=== PATIENT | female | born 1960 | race Caucasian/White ===

== ENCOUNTER → 2019-05-31 10:55 | Outpatient (CLI) | payer BC, SELFPAY ==
--- NOTE | ~2019-05-31 | MM_ITS ---
EXAMINATION: MM screening carie BI w sheri HISTORY: Screening mammogram TECHNIQUE: Craniocaudal and mediolateral oblique 3-D tomosynthesis images were obtained and synthetic 2-D images were generated. CAD analysis was submitted and interpreted. COMPARISON: 05/28/2018, 05/20/2017, 05/07/2016 bilateral digital screening mammogram examinations BREAST PARENCHYMAL COMPOSITION: There are scattered areas of fibroglandular density. FINDINGS: Status post right partial mastectomy for breast cancer. Several benign circumscribed low-de nsity stable opacities on the right. Minimal benign calcification on the right. There is no evidence of suspicious mass, calcification, or architectural distortion to suggest malignancy in either breast . There has been no suspicious interval change. IMPRESSION: 1. No mammographic evidence of malignancy. 2. Recommend routine screening mammography in one year. BI-RADS Category 2: Benign finding(s). Reviewed, dictated and finalized at location A. X SYSTEMS ADMINISTRATOR
--- NOTE | ~2019-05-31 | DEXA_ITS ---
Bone Density Report Name: Kym Tariq Age: 59 Sex: Female Ethnicity: White Date of : 1960 Indication: osteopenia; height loss; prior fracture; postmenopausal Referring Provider: AFTAB, BONG [place] Study: Bone densitometry was performed. Exam Date: May 31, 2019 Accession number: [id number] Bone Density: Region BMD T-score Z-score Classification AP Spine (L1-L4) 0.842 -1.9 -0.5 Osteopenia Femoral Neck (Left) 0.750 -0.9 0.4 Normal Total Hip (Left) 0.852 -0.7 0.2 Normal Femoral Neck (Right) 0.758 -0.8 0.4 Normal Total Hip (Right) 0.923 -0.2 0.7 Normal Total Hip Mean 0.888 -0.5 0.5 Normal World Health Organization criteria for BMD impression classify patients as: Normal (T-score at or above -1.0), Osteopenia (T-score between -1.0 and -2.5), or Osteoporosis (T-score at or below -2.5). 10-year Fracture Risk(1): Major Osteoporotic Fracture 12% Hip Fracture 0.6% Reported Risk Factors: [place] (), Neck BMD=0.750, BMI=27.3, previous fracture (1) FRAX(R) Version 3.08. Fracture probability calculated for an untreated patient. Fracture probability may be lower if the patient has received treatment. Previous Exams: Region Exam Age BMD T-score BMD Change BMD Change Date g/cm2 vs Baseline vs Previous AP Spine(L1-L4) 05/31/2019 59 0.842 -1.9 -0.094* 0.002 05/23/2016 56 0.840 -1.9 -0.096* -0.048* 12/15/2013 53 0.888 -1.4 -0.048* -0.048* 06/08/2010 50 0.936 -1.0 Total Hip(Left) 05/31/2019 59 0.852 -0.7 -0.033* -0.009 05/23/2016 56 0.861 -0.7 -0.024 -0.002 12/15/2013 53 0.863 -0.6 -0.022 -0.022 06/08/2010 50 0.885 -0.5 Total Hip(Right) 05/31/2019 59 0.923 -0.2 -0.008 -0.002 05/23/2016 56 0.925 -0.1 -0.006 0.000 12/15/2013 53 0.925 -0.1 -0.006 -0.006 06/08/2010 50 0.931 -0.1 *Denotes significance at 95% confidence level, LSC for AP Spine = 0.022 g/cm2, LSC for Total Hip = 0.027 g/cm2 Clinical Information Provided by Patient: Has had a low trauma fracture Patient maximum height was 63 Menopause Age: 47 Drinks caffeinated beverages Onset of menses at age 13 Number of children 2 Impression: The patient has low bone mass, based on the Total Spine T-score. The patient has an estimated ten-year risk of hip frac
== END ==
PROVIDERS: Visit Provider Internal Medicine
DX: Z12.31 Encounter for screening mammogram for malignant neoplasm of breast (principal); C50.111 Malignant neoplasm of central portion of right female breast; Z17.1 Estrogen receptor negative status [ER-]; Z78.0 Asymptomatic menopausal state; M85.88 Other specified disorders of bone density and structure, other site
CPT/HCPCS: 77063; 77067; 77080

== ENCOUNTER 2020-01-04 10:17 | Emergency (ER) | payer BC, SELFPAY ==
--- NOTE | ~2020-01-04 | XR_ITS ---
EXAMINATION: XR wrist RT min 3V DATE: 01/04/2020 10:51 INDICATION: Ulnar-sided wrist pain TECHNIQUE: Posteroanterior, ulnar deviation, oblique, and lateral views of the right wrist were obtai juan. COMPARISON: none FINDINGS: Alignment is normal. No fracture. Ulnar variance appears neutral however there is prominent cystic ch aaron at the ulnar side of the proximal lunate suggestive of ulnocarpal impaction. Joint spaces are no rmal. Soft tissues are unremarkable. IMPRESSION: 1. Prominent cystic change at the ulnar side of the proximal lunate suggestive of ulnocarpal impactio n although ulnar variance is neutral. Differential would include intraosseous ganglion cyst or less l ikely osteonecrosis. Reviewed, dictated and finalized at location A. IMPRESSION: 1. Prominent cystic change at the ulnar side of the proximal lunate suggestive of ulnocarpal impaction although ulnar variance is neutral. Differential would include intraosseous ganglion cyst or less likely osteonecrosis.
[2020-01-04 10:31] VITALS: BP 140/79; PULSE 75; RESP 18; TEMP 36.4; O2SAT 99
--- NOTE | 2020-01-04 10:42 | ED.UPPEXIN ---
HPI - Extremity Injury (Upper) General Chief Complaint: Extremity Injury, Upper Stated Complaint: right wrist pain Source: patient and RN notes reviewed Mode of arrival: ambulatory Limitations: no limitations History of Present Illness HPI narrative: This is a 59-year-old white female that presented to the urgent care today with complaints of right wrist pain that she has had for the last 10 days. According to patient she was lifting her bike and could have possibly injured her right wrist. She denies any swelling and notes that with movement and pressure she experienced pain. Patient has not did anything at home to relieve her symptoms. Patient does have full range of motion with that right wrist and pulses are palpable. She notes that the only time she really feels pain is when she puts pressure on the wrist. She also noted that the pain has woke her out of her sleep at night. the patient denies SOB, CP, palpitation, extremity numbness, lightheadedness, dizziness, constipation, diarrhea, chills, or fever. We will order a x-ray of her wrist Related Data Home Medications Medication Instructions Recorded Confirmed atorvastatin 20 mg PO DAILY 01/04/20 01/04/20 Allergies Allergy/AdvReac Type Severity Reaction Status Date / Time No Known Allergies Allergy Verified 01/04/20 10:21 Review of Systems Review of Systems: Narrative: CONSTITUTIONAL: Denies fever, chills, sweats. EYES: Denies visual changes, redness, discharge. ENT: Denies rhinorrhea, congestion, sore throat, otalgia. CARDIOVASCULAR: Denies chest pain, palpitations, edema. RESPIRATORY: Denies dyspnea, wheezing, cough GASTROINTESTINAL: Denies abdominal pain, nausea, vomiting, diarrhea. GENITOURINARY: Denies dysuria, hematuria, abnormal discharge SKIN: Denies rash or itching. MUSCULOSKELETAL: right wrist pain when pressure is applied and with positioning NEUROLOGIC: DenIes numbness, or focal weakness. PSYCHIATRIC: Denies anxiety or depression. PMFSH Social History Social History Gender identity (if verbalized by the patient): Female Exam Narrative: Exam Narrative: GENERAL: This is a well-nourished, well-developed patient, in no apparent distress. HEAD: normocephalic, atraumatic. EYES: PERRL. Sclera clear/white. Vision is grossly intact. EARS: External ears normal, auditory canals clear and without drainage, TMs normal without perforation. Hearing grossly intact. NOSE: External nose normal with no obvious nasal discharge, nares without redness, no rhinorrhea. THROAT: Mucous membranes moist, posterior pharynx clear. NECK: Neck supple, non-tender without lymphadenopathy, masses or thyromegaly. CARDIOVASCULAR: Regular rate and rhythm without murmurs, gallops, or rubs. RESPIRATORY: Clear to auscultation. Breath sounds equal bilaterally. No wheezes, rales, or rhonchi. GASTROINTESTINAL: Abdomen soft, non-tender, nondistended. Bowel sounds are active. No hepato-splenomegaly, or palpable masses. No guarding. SKIN: warm, intact with no suspicious lesions or rash, good texture and turgor. NEURO: awake, alert, and oriented to person, place and time. There were no obvious focal neurologic abnormalities. Steady gait EXTREMITIES: Limited range of motion to the right wrist due to pain. No edema noted. tenederness with palpation, dhara strength, not neurovascular compromise BACK: Nontender without deformity or crepitance. No flank tenderness. Course Vital Signs Vital signs: Vital Signs Temperature 97.6 F 01/04/20 10:31 Pulse Rate 75 01/04/20 10:31 Respiratory Rate 18 01/04/20 10:31 Blood Pressure 140/79 01/04/20 10:31 Pulse Oximetry 99 01/04/20 10:31 Temperature 97.6 F 01/04/20 10:31 Pulse Rate 75 01/04/20 10:31 Respiratory Rate 18 01/04/20 10:31 Blood Pressure 140/79 01/04/20 10:31 Pulse Oximetry 99 01/04/20 10:31 Procedures Other Procedure Procedure 1: Other P
== END 2020-01-04 11:24 | disposition home or self-care (01) ==
PROVIDERS: Emergency Provider Nurse Practitioner; PCP Family Medicine
DX: M67.431 Ganglion, right wrist (principal); S63.501A Unspecified sprain of right wrist, initial encounter; S66.911A Strain of unspecified muscle, fascia and tendon at wrist and hand level, right hand, initial encounter; X58.XXXA Exposure to other specified factors, initial encounter; M25.831 Other specified joint disorders, right wrist; E78.00 Pure hypercholesterolemia, unspecified
CPT/HCPCS: 73110; 99213; G0463

== ENCOUNTER 2020-02-09 08:51 | Outpatient (NON) | payer BC, SELFPAY ==
[2020-02-09 19:05] LABS: SARS-CoV-2 RNA PCR Negative
== END 2020-02-09 08:52 ==
PROVIDERS: PCP Family Medicine; Visit Provider Family Medicine
DX: J02.9 Acute pharyngitis, unspecified (principal); R51.9 Headache, unspecified
CPT/HCPCS: 87635; C9803; U0003

== ENCOUNTER 2020-06-08 16:44 | Outpatient (CLI) | payer BC, SELFPAY ==
--- NOTE | ~2020-06-08 | MM_ITS ---
EXAMINATION: MM screening carie BI w sheri HISTORY: Screening TECHNIQUE: Craniocaudal and mediolateral oblique 3-D tomosynthesis images were obtained and synthetic 2-D images were generated. CAD analysis was submitted and interpreted. COMPARISON: Comparison to multiple prior studies sequentially, with oldest reviewed study dated 03/22. BREAST PARENCHYMAL COMPOSITION: There are scattered areas of fibroglandular density. FINDINGS: Stable architectural distortion of the right breast, consistent with previous lumpectomy. T here is no evidence of suspicious mass, calcification, or architectural distortion to suggest maligna ncy in either breast. There has been no suspicious interval change. IMPRESSION: 1. No mammographic evidence of malignancy. 2. Recommend routine screening mammography in one year. BI-RADS Category 2: Benign finding(s). Reviewed, dictated and finalized at location A. ER
== END 2020-06-08 16:45 | disposition home or self-care (01) ==
PROVIDERS: PCP Family Medicine; Visit Provider Obstetrics & Gynecology Gynecology
DX: Z12.31 Encounter for screening mammogram for malignant neoplasm of breast (principal)
CPT/HCPCS: 77063; 77067

== ENCOUNTER → 2020-11-24 13:55 | Outpatient (CLI) | payer BC, SELFPAY ==
--- NOTE | ~2020-11-24 | XR_ITS ---
EXAMINATION: XR hip RT min 2V DATE: 11/24/2020 14:04 INDICATION: Right hip pain. TECHNIQUE: 2 views of right hip were obtained. COMPARISON: Right hip radiographs 03/30/2007 FINDINGS: Bone alignment is normal. No fracture. There is mild right hip osteoarthritis. IMPRESSION: 1. Mild right hip osteoarthritis. Reviewed, dictated and finalized at location A.
== END ==
PROVIDERS: PCP Family Medicine; Visit Provider Physician Assistant
DX: M25.551 Pain in right hip (principal)
CPT/HCPCS: 73502

== ENCOUNTER 2021-01-16 01:34 | Day surgery (SDC) | payer BC, SELFPAY ==
[2021-01-04 13:01] VITALS: BMI 24.7
[2021-01-16 09:25] VITALS: BP 99/62; PULSE 63; RESP 16; TEMP 36.2; O2SAT 100; BMI 23.7
[2021-01-16] MEDS: LACTATED RINGERS 1,000 ML 150 ML IV CONT (09:32)
--- NOTE | 2021-01-16 09:38 | P.CONGI_ITS ---
Assessment and Plan Assessment and plan (1) Encounter for screening colonoscopy: Code(s): Z12.11 - Encounter for screening for malignant neoplasm of colon Status: Acute Assessment and Plan: Patient presents for screening colonoscopy. Appears to be at average risk for colon polyps. GI Consult Note Consult date/time: 01/16/21 09:38 HPI: Elysia Tariq is a 60 year old female Presents for neoplasia screening. Patient's current weight appetite bowel movements are normal. She denies abdominal pain. She has had no bleeding. She has had some tendency towards constipation. Her past medical history is significant for breast cancer for which she has had chemotherapy. She complains of occasional joint aches. She presents today for neoplasia screening colonoscopy. [facility] Social History Social History Smoking packs per day: 1 Smoking cigarettes per day: 20.0 Smoking status: Former smoker Tobacco type: cigarettes Substance use type: does not use Gender identity (if verbalized by the patient): Female Meds Home Medications and Allergies Home Medications Medication Instructions Recorded Confirmed Type atorvastatin 20 mg PO DAILY 01/04/20 01/16/21 History meloxicam 15 mg PO DAILY 01/04/21 01/16/21 History Allergies Allergy/AdvReac Type Severity Reaction Status Date / Time No Known Allergies Allergy Verified 01/16/21 09:24 Vital Signs Vital Signs - 24 hr 01/16/21 09:25 Temperature 97.2 F L Pulse Rate 63 Respiratory Rate 16 Blood Pressure 99/62 L Pulse Oximetry 100 Exam Narrative: Physical exam reveals patient be alert. Vital signs stable. HEENT exam is unremarkable. Patient is anicteric. Lungs are clear to auscultation and percussion. Heart is without murmur or extra sounds. Abdominal exam bowel sounds are present soft nontender with no organomegaly. Digital external rectal exam is normal.
--- NOTE | 2021-01-16 10:25 | P.PNAN_ITS ---
Anes - Initial Pre Proc Eval Procedure: Operation Date: 01/16/21 10:30 Proposed Procedures p Screening Colonoscopy - Kendall Vance MD Date/Time: 01/16/21 10:25 Surgeon: Kendall Vance MD Pre Op Diagnosis: neoplasm screening Patient Data Age: 60 Gender: F Height: 1.57 m Weight: 58.8 kg Last Vital Signs Temp 97.2 F L 01/16/21 09:25 Pulse 63 01/16/21 09:25 Resp 16 01/16/21 09:25 BP 99/62 L 01/16/21 09:25 Pulse Ox 100 01/16/21 09:25 Allergies Allergy/AdvReac Type Severity Reaction Status Date / Time No Known Allergies Allergy Verified 01/16/21 09:24 Home Medications Medication Instructions Recorded Confirmed Type atorvastatin 20 mg PO DAILY 01/04/20 01/16/21 History meloxicam 15 mg PO DAILY 01/04/21 01/16/21 History Patient hx anesthesia problems: none Family hx anesthesia problems: none Results Review: All pre-operative results and documents have been reviewed as part of the pre-operative evaluation. [facility] Past Medical History Medical History (Updated 01/16/21 @ 10:25 by Davis Macdonald MD) H/O malignant neoplasm of breast Hyperlipidemia Social History Social History Smoking packs per day: 1 Smoking cigarettes per day: 20.0 Smoking status: Former smoker Tobacco type: cigarettes Substance use type: does not use Gender identity (if verbalized by the patient): Female Anes - Eval Final PreProcedure Day of Procedure 01/16/21 10:25 Patient weight: overweight Heart: regular rate and rhythm Lungs: clear to auscultation Airway: Mallampati scale class II Neurological: alert and oriented Last oral intake: >/= 8 hours ASA classification: III Emergent: no Anesthetic plan: proceed Anesthesia type and monitoring: general GIVS and standard monitoring Results Review: All pre-operative results and documents have been reviewed as part of the pre-operative evaluation. Informed Consent: The patient's anesthetic plan and its attendant risks and benefits were discussed with the patient/family/POA. Questions were solicited and answers provided to the satisfaction of the patient/family/POA.
--- NOTE | 2021-01-16 10:57 | SUR.OPER ---
Patient has right arm limb alert due to breast cancer. Patient states its ok to use right arm for IV insertion. Successful IV placed in right AC per ARTI Gregory.
[2021-01-16 11:12] VITALS: BP 90/52; PULSE 64; RESP 18; O2SAT 99
[2021-01-16 11:22] VITALS: BP 106/71; PULSE 63; RESP 20; O2SAT 100
[2021-01-16 11:32] VITALS: BP 116/68; PULSE 58; RESP 18; O2SAT 100
== END 2021-01-16 11:38 | disposition home or self-care (01) ==
PROVIDERS: PCP Family Medicine; Visit Provider Internal Medicine Gastroenterology
PROC: 0DJD8ZZ Inspection of Lower Intestinal Tract, Via Natural or Artificial Opening Endoscopic (ICD-10-PCS; CPT 45378; principal; 2021-01-16 10:30)
DX: Z12.11 Encounter for screening for malignant neoplasm of colon (principal); K64.8 Other hemorrhoids; K57.30 Diverticulosis of large intestine without perforation or abscess without bleeding; Z87.891 Personal history of nicotine dependence
CPT/HCPCS: 45378; J2001; J2704; J7120

== ENCOUNTER → 2021-01-17 11:35 | Outpatient (CLI) | payer BC, SELFPAY ==
--- NOTE | ~2021-01-17 | XR_ITS ---
XR chest 2V DATE: 01/17/2021 12:06 INDICATION: Back pain TECHNIQUE: PA and lateral views COMPARISON: 06/22/2009 portable AP chest FINDINGS: There is bilateral hyperinflation. No pulmonary infiltrate or consolidation, pleural effusi on or pulmonary vascular congestion or pneumothorax. Normal heart size. No hilar or mediastinal enlargement. Diffuse osteopenia. IMPRESSION: Bilateral hyperinflation; no active cardiac pulmonary disease Osteopenia Reviewed, dictated and finalized at location B.
== END ==
PROVIDERS: PCP Family Medicine; Visit Provider Physician Assistant
DX: M54.9 Dorsalgia, unspecified (principal); R91.8 Other nonspecific abnormal finding of lung field; M85.88 Other specified disorders of bone density and structure, other site
CPT/HCPCS: 71046

== ENCOUNTER → 2021-01-25 15:00 | Outpatient (CLI) | payer BC, SELFPAY ==
--- NOTE | ~2021-01-25 | US_ITS ---
EXAMINATION: US right upper quadrant DATE: 01/25/2021 15:30 INDICATION: Right upper quadrant abdominal pain. Right upper back pain. TECHNIQUE: Multiple grayscale and Doppler ultrasound images of the abdomen were obtained. COMPARISON: Ultrasound 03/05/2013 FINDINGS: The visualized portions of the head, body, and tail of the pancreas are normal. The liver i s normal without focal lesion. No liver surface nodularity. There is normal flow in main portal vein. The gallbladder is normal in size. No gallstones or gallbladder wall thickening. There was no sonogr aphic Knutson sign. The common duct is normal and measures 5 mm. Right kidney is normal. IMPRESSION: 1. Normal right upper quadrant ultrasound. Reviewed, dictated and finalized at location A.
== END ==
PROVIDERS: PCP Family Medicine; Visit Provider Physician Assistant
DX: R10.11 Right upper quadrant pain (principal)
CPT/HCPCS: 76705

== ENCOUNTER 2021-07-09 09:30 | Outpatient (CLI) | payer BC, SELFPAY ==
--- NOTE | ~2021-07-09 | MM_ITS ---
EXAMINATION: MM screening carie BI w sheri HISTORY: Screening mammogram TECHNIQUE: Craniocaudal and mediolateral oblique 3-D tomosynthesis images were obtained and synthetic 2-D images were generated. CAD analysis was submitted and interpreted. COMPARISON: June 08, 2020, May 31, 2019, May 28, 2018 bilateral screening mammogram exam inations BREAST PARENCHYMAL COMPOSITION: There are scattered areas of fibroglandular density. FINDINGS: There is diminished volume of the right breast compared to the left consistent with prior p artial mastectomy for malignancy 15 years ago according to the history. There is no evidence of suspi cious mass, calcification, or architectural distortion to suggest malignancy in either breast. There has been no suspicious interval change. IMPRESSION: 1. No mammographic evidence of malignancy. 2. Recommend routine screening mammography in one year. BI-RADS Category 2: Benign finding(s). Reviewed, dictated and finalized at location A.
== END 2021-07-09 09:31 | disposition home or self-care (01) ==
LOC: ANHIMG 09:32
PROVIDERS: PCP Family Medicine; Visit Provider Obstetrics & Gynecology Gynecology
DX: Z12.31 Encounter for screening mammogram for malignant neoplasm of breast (principal)
CPT/HCPCS: 77063; 77067

== ENCOUNTER → 2022-01-03 13:49 | Outpatient (CLI) | payer BC, SELFPAY ==
--- NOTE | ~2022-01-03 | DEXA_ITS ---
Bone Density Report Name: TONYA FAULKNER Age: 61 Sex: Female Ethnicity: White Date of : 1960 Indication: osteopenia; prior fracture; postmenopausal Referring Provider: DANA NOVAK Study: Bone densitometry was performed. Exam Date: January 03, 2022 Accession number: [id number] Bone Density: Region BMD T-score Z-score Classification AP Spine (L1-L4) 0.850 -1.8 -0.2 Osteopenia Femoral Neck (Left) 0.739 -1.0 0.4 Normal Total Hip (Left) 0.829 -0.9 0.1 Normal Femoral Neck (Right) 0.744 -0.9 0.4 Normal Total Hip (Right) 0.888 -0.4 0.6 Normal Total Hip Mean 0.859 -0.7 0.4 Normal World Health Organization criteria for BMD impression classify patients as: Normal (T-score at or above -1.0), Osteopenia (T-score between -1.0 and -2.5), or Osteoporosis (T-score at or below -2.5). 10-year Fracture Risk(1): Major Osteoporotic Fracture 12% Hip Fracture 0.8% Reported Risk Factors: [place] (), Neck BMD=0.739, BMI=23.6, previous fracture (1) FRAX(R) Version 3.08. Fracture probability calculated for an untreated patient. Fracture probability may be lower if the patient has received treatment. Previous Exams: Region Exam Age BMD T-score BMD Change BMD Change Date g/cm2 vs Baseline vs Previous AP Spine(L1-L4) 01/03/2022 61 0.850 -1.8 -0.086* 0.008 05/31/2019 59 0.842 -1.9 -0.094* 0.002 05/23/2016 56 0.840 -1.9 -0.096* -0.048* 12/15/2013 53 0.888 -1.4 -0.048* -0.048* 06/08/2010 50 0.936 -1.0 Total Hip(Left) 01/03/2022 61 0.829 -0.9 -0.056* -0.023 05/31/2019 59 0.852 -0.7 -0.033* -0.009 05/23/2016 56 0.861 -0.7 -0.024 -0.002 12/15/2013 53 0.863 -0.6 -0.022 -0.022 06/08/2010 50 0.885 -0.5 Total Hip(Right) 01/03/2022 61 0.888 -0.4 -0.043* -0.035* 05/31/2019 59 0.923 -0.2 -0.008 -0.002 05/23/2016 56 0.925 -0.1 -0.006 0.000 12/15/2013 53 0.925 -0.1 -0.006 -0.006 06/08/2010 50 0.931 -0.1 *Denotes significance at 95% confidence level, LSC for AP Spine = 0.022 g/cm2, LSC for Total Hip = 0.027 g/cm2 Clinical Information Provided by Patient: Has had a low trauma fracture Has used the following medications: Calcium, MULTI-VITAMIN Patient maximum height was 62.5 Menopause Age: 47 Drinks caffeinated beverages Onset of
== END ==
PROVIDERS: PCP Family Medicine; Visit Provider Obstetrics & Gynecology Gynecology
DX: Z78.0 Asymptomatic menopausal state (principal); M85.88 Other specified disorders of bone density and structure, other site
CPT/HCPCS: 77080

== ENCOUNTER → 2022-08-21 12:17 | Outpatient (CLI) | payer BC, SELFPAY ==
--- NOTE | ~2022-08-21 | XR_ITS ---
EXAMINATION: XR hip LT min 2V DATE: 08/21/2022 13:43 INDICATION: Left hip pain. TECHNIQUE: 2 views of left hip were obtained. COMPARISON: None. FINDINGS: Bone alignment is normal. No fracture. There is mild left hip osteoarthritis characterized by tiny marginal osteophytes. No joint space narrowing. IMPRESSION: 1. Mild left hip osteoarthritis. Reviewed, dictated and finalized at location A.
--- NOTE | ~2022-08-21 | XR_ITS ---
EXAM: XR shoulder LT min 2V DATE: 08/21/2022 13:43 HISTORY: M25.512 - Pain in left shoulder . COMPARISON: None available. FINDINGS: Normal mineralization. No fracture or dislocation. No lytic or blastic lesion. Mild AC darius nt hypertrophy and glenohumeral degenerative change. No erosion or periosteal change. Soft tissues wi thin normal limits. IMPRESSION: Mild polyarticular left shoulder osteoarthritis. Reviewed, dictated and finalized at location K.
== END ==
PROVIDERS: PCP Family Medicine; Visit Provider Family Medicine
DX: M25.552 Pain in left hip (principal); M25.512 Pain in left shoulder; M15.9 Polyosteoarthritis, unspecified
CPT/HCPCS: 73030; 73502

== ENCOUNTER 2022-09-19 13:01 | Outpatient (CLI) | payer BC, SELFPAY ==
--- NOTE | ~2022-09-19 | XR_ITS ---
. EXAMINATION: XR lg joint inject/asp w image DATE: 09/19/2022 13:39 INDICATION: Unilateral primary osteoarthritis, left hip. TECHNIQUE: A time-out was performed to verify the patient's name, date of , and procedure to b e performed. The procedure including the risks, benefits, and alternatives was discussed with the pat ient. Risks discussed included bleeding and infection. The patient understood the risks and agreed to proceed. The skin overlying the left hip joint was prepped and draped in usual sterile fashion. An esthetic was administered with 1% lidocaine subcutaneously. A 22 G needle was advanced under fluoros copic guidance into the joint. Subsequently, injectate consisting of 2 mL 1% lidocaine and 4 mL 10 m g/mL Kenalog was instilled. The needle was removed and the entry site was cleaned and dressed. Ther e were no immediate complications. Fluoroscopy exposure time w 0.1 minutes. The total number of imag es was 1. FINDINGS: Real-time fluoroscopy demonstrates the needle in the left hip joint. Patient's pain prior t o procedure:07/29. Patient's pain following the procedure: 04/30. IMPRESSION: 1. Fluoroscopy guided left hip joint injection of local anesthetic and steroid with decrease in the p atient's presenting pain. Reviewed, dictated and finalized at location A. IMPRESSION: 1. Fluoroscopy guided left hip joint injection of local anesthetic and steroid with decrease in the patient's presenting pain.
== END 2022-09-19 13:02 | disposition home or self-care (01) ==
PROVIDERS: PCP Family Medicine; Visit Provider Family Medicine
DX: M16.12 Unilateral primary osteoarthritis, left hip (principal)
CPT/HCPCS: 20610; 77002; J3301

== ENCOUNTER → 2022-09-28 09:37 | Outpatient (CLI) | payer BC, SELFPAY ==
--- NOTE | ~2022-09-28 | MM_ITS ---
EXAMINATION: MM screening carie BI w sheri HISTORY: Screening mammogram TECHNIQUE: Craniocaudal and mediolateral oblique 3-D tomosynthesis images were obtained and synthetic 2-D images were generated. CAD analysis was submitted and interpreted. COMPARISON: 07/09/2021, 06/08/2020, 05/31/2019 lateral screening mammogram examinations BREAST PARENCHYMAL COMPOSITION: There are scattered areas of fibroglandular density. FINDINGS: History of right partial mastectomy and radiotherapy for breast cancer. There is no evidenc e of suspicious mass, calcification, or architectural distortion to suggest malignancy in either [address]. There has been no suspicious interval change. IMPRESSION: 1. Status post right partial mastectomy for breast cancer. No mammographic evidence of malignancy. 2. Recommend routine screening mammography in one year. BI-RADS Category 2: Benign finding(s). Reviewed, dictated and finalized at location A. IMPRESSION: 1. Status post right partial mastectomy for breast cancer. No mammographic evid ence of malignancy. 2. Recommend routine screening mammography in one year. BI-RADS Category 2: Benign finding(s).
== END ==
PROVIDERS: PCP Family Medicine; Visit Provider Obstetrics & Gynecology Gynecology
DX: Z12.31 Encounter for screening mammogram for malignant neoplasm of breast (principal); Z90.11 Acquired absence of right breast and nipple
CPT/HCPCS: 77063; 77067

== ENCOUNTER 2023-11-04 10:30 | Outpatient (CLI) | payer BC, SELFPAY ==
--- NOTE | ~2023-11-04 | MM_ITS ---
EXAMINATION: MM screening carie BI w sheri HISTORY: Screening TECHNIQUE: Craniocaudal and mediolateral oblique 3-D tomosynthesis images were obtained and synthetic 2-D images were generated. CAD analysis was submitted and interpreted. COMPARISON: Comparison to multiple prior studies sequentially, with oldest reviewed study dated 05/20. BREAST PARENCHYMAL COMPOSITION: Not dense: There are scattered areas of fibroglandular density. FINDINGS: There is no evidence of suspicious mass, calcification, or architectural distortion to sugg est malignancy in either breast. There has been no suspicious interval change. IMPRESSION: 1. No mammographic evidence of malignancy. 2. Recommend routine screening mammography in one year. BI-RADS Category 1: Negative Reviewed, dictated and finalized at location B.
== END 2023-11-04 10:31 ==
PROVIDERS: PCP Family Medicine; Visit Provider Nurse Practitioner
DX: Z12.31 Encounter for screening mammogram for malignant neoplasm of breast (principal)
CPT/HCPCS: 77063; 77067

== ENCOUNTER 2024-02-18 12:13 | Outpatient (CLI) | payer BC, SELFPAY ==
--- NOTE | ~2024-02-18 | DEXA_ITS ---
Bone Density Report Name: CARLOS FAULKNER Age: 64 Sex: Female Ethnicity: White Date of : 1960 Indication: postmenopausal; screening for osteoporosis; prior fracture; cancer; Referring Provider: Eric, Gudelia Study: Bone densitometry was performed. Exam Date: February 18, 2024 Accession number: [id number] Bone Density: Region BMD T-score Z-score Classification AP Spine(L1-L4) 0.846 -1.8 -0.1 Osteopenia Femoral Neck (Left) 0.681 -1.5 -0.1 Osteopenia Total Hip (Left) 0.825 -1.0 0.2 Normal Femoral Neck (Right) 0.732 -1.1 0.4 Osteopenia Total Hip (Right) 0.896 -0.4 0.8 Normal Femoral Neck Mean 0.706 -1.3 0.2 Osteopenia Total Hip Mean 0.860 -0.7 0.5 Normal World Health Organization criteria for BMD impression classify patients as: Normal (T-score at or above -1.0), Osteopenia (T-score between -1.0 and -2.5), or Osteoporosis (T-score at or below -2.5). 10-year Fracture Risk(1): Major Osteoporotic Fracture 15% Hip Fracture 1.5% Reported Risk Factors: [place] (), Neck BMD=0.681, BMI=24.3, previous fracture (1) FRAX(R) Version 3.08. Fracture probability calculated for an untreated patient. Fracture probability may be lower if the patient has received treatment. Clinical Information Provided by Patient: Has had a low trauma fracture Has used the following medications: Vitamin D, Calcium, MULTI Has the following medical conditions: Cancer Patient maximum height was 63 Menopause Age: 46 Drinks caffeinated beverages Onset of menses at age 13 Number of children 2 Impression: The patient has low bone mass, based on the Total Spine T-score. The patient has risk factors, including: previous fracture. Discussion: BONE DENSITY IS LOW AT ONE OR MORE SKELETAL SITES. This patient's lowest T-score is low at one or more skeletal sites. It meets the World Health Organization's (WHO) criteria for ?low bone mass? (T-score between -1.0 and -2.5). The patient's 10-year risk of fracture as calculated by FRAX is less than the threshold where pharmacological therapy is recommended by the National Osteoporosis Foundation (NOF). However, all treatment decisions require clinical judgment and consideration of individual patient factors, including patient preferences, comorbidities, previous drug use, risk factors not captured in the FRAX model (e.g., frailty, falls, vitamin D deficiency, increased bone turnover, interval significant decline in bone density) and possible under or overestimation of fracture risk by FRAX. The patient should follow a healthful lifestyle (good nutrition with adequate calcium and vitamin D, and appropriate weight-bearing exercise). Follow-Up: Consider repeating this study in 2 to 3 years to reassess this patient's status, or sooner if there is some new clinical indication. Reported by: RADHA on 02/18/2024 12:31:00 PM. Reviewed, dictated and finalized at location A.
== END 2024-02-18 12:14 | disposition home or self-care (01) ==
PROVIDERS: PCP Family Medicine; Visit Provider Nurse Practitioner
DX: Z78.0 Asymptomatic menopausal state (principal); M85.89 Other specified disorders of bone density and structure, multiple sites
CPT/HCPCS: 77080

== ENCOUNTER 2024-03-06 08:57 | Outpatient (CLI) | payer BC, SELFPAY ==
--- NOTE | ~2024-03-06 | MR_ITS ---
MRI of the left hip Clinical history: Pain Technique: Coronal T1-weighted, T2-weighted, and proton-density fat-sat images, and axial T1-weighted and proton-density fat-sat images were acquired through the pelvis. Coronal T2-weighted images and c oronal, axial, and sagittal proton-density fat-sat images were acquired through the left hip. Findings: There is no fracture or avascular necrosis of either hip. Bone marrow signals the proximal femora and visualized pelvic bones are unremarkable. Bilateral hip joint spaces are preserved. No high-grade degenerative change. No joint effusion. No le ft acetabular labral tear identified. Visualized musculature about the pelvis and left hip is unremarkable. No muscle atrophy or edema. Vis ualized tendons are intact. No soft tissue mass seen. There is probable mild tendinosis of the distal left gluteal tendons with possible minimal developing greater trochanteric bursitis. IMPRESSION: Probable mild tendinosis of the distal left gluteal tendons at the greater trochanter, with minimal d eveloping left greater trochanteric bursitis. Reviewed, dictated and finalized at location . D [employer] IMPRESSION: Probable mild tendinosis of the distal left gluteal tendons at the greater troc hanter, with minimal developing left greater trochanteric bursitis.
== END 2024-03-06 08:58 | disposition home or self-care (01) ==
LOC: CHSIMG 08:58
PROVIDERS: PCP Family Medicine; Visit Provider Physician Assistant Surgical
DX: M25.552 Pain in left hip (principal); M71.552 Other bursitis, not elsewhere classified, left hip
CPT/HCPCS: 73721

== ENCOUNTER 2024-11-05 10:26 | Outpatient (CLI) | payer BC, SELFPAY ==
--- NOTE | ~2024-11-05 | MM_ITS ---
EXAMINATION: MM screening carie BI w sheri HISTORY: Screening TECHNIQUE: Craniocaudal and mediolateral oblique 3-D tomosynthesis images were obtained and synthetic 2-D images were generated. CAD analysis was submitted and interpreted. COMPARISON: Comparison to multiple prior studies sequentially, with oldest reviewed study dated 10/2018. BREAST PARENCHYMAL COMPOSITION: Not dense: There are scattered areas of fibroglandular density. FINDINGS: There is no evidence of suspicious mass, calcification, or architectural distortion to sugg est malignancy in either breast. There has been no suspicious interval change. IMPRESSION: 1. No mammographic evidence of malignancy. 2. Recommend routine screening mammography in one year. BI-RADS Category 1: Negative Reviewed, dictated and finalized at location B.
== END 2024-11-05 10:27 | disposition home or self-care (01) ==
LOC: MICIMG 10:26
PROVIDERS: PCP Family Medicine; Visit Provider Obstetrics & Gynecology Gynecology
DX: Z12.31 Encounter for screening mammogram for malignant neoplasm of breast (principal)
CPT/HCPCS: 77063; 77067